=== PATIENT | male | born 1945 | race Caucasian/White ===

== ENCOUNTER → 2023-08-30 12:43 | Outpatient (CLI) | payer MEDICARE, OTHER, SELFPAY ==
--- NOTE | 2023-08-30 13:24 | DI.MRI.S_ITS ---
PROCEDURE: MR KNEE LT WO CON INDICATIONS: LEFT KNEE LATERAL MENISCUS TEAR TECHNIQUE: Noncontrast sagittal PD fast spin echo and T2 fast spin echo with fat saturation, sagittal 3-D FLASH with fat saturation; coronal T1 spin echo and PD fast spin echo with fat saturation, and axial PD fast spin echo with fat saturation through the knee. COMPARISON: [facility] Outside Film, CR, XR KNEE 3 VIEWS LEFT, 03/29/2023, 14:24. FINDINGS: Image quality: Excellent. Menisci: Markedly truncated appearance of body and posterior horn of medial meniscus suggestive of prior partial medial meniscectomy. Subtle signal abnormality within posterior horn remanent of medial meniscus extending to inferior articulating surface concerning for recurrent tear. Peripheral displacement of medial meniscus remanent bowing medial collateral ligament is seen. There is oblique tear involving anterior horn of lateral meniscus extending to superior articulating surface. There is torn posterior medial meniscal root ligament. Cruciate ligaments: The anterior cruciate ligament appears thickened. The posterior cruciate ligament is intact. Medial structures: The medial collateral ligament appears mildly thickened near its femoral insertion with surrounding edema. Visualized portions of the pes anserinus tendons appear normal. No abnormal bursal fluid. Lateral structures: The lateral collateral ligament, long and short heads of the biceps femoris tendon appear intact. The popliteus tendon appears normal. Iliotibial band appears normal. Anterior structures: Distal quadriceps tendinosis and diffuse patellar tendinosis is seen. No tendon rupture. Patellar alignment is normal. Bones and cartilage: Moderate tricompartmental osteoarthritis and chondromalacia is seen most notably in medial femoral tibial compartment. No fracture or dislocation. Joint space: There is moderate knee joint fluid. There is a popliteal cyst measures 2.7 x 2.4 x 5.4 cm in size. Normal appearing synovial plicae are incidentally noted. IMPRESSION: 1. Markedly truncated appearance of medial meniscus suggestive of prior partial medial meniscectomy. Possible re-tear involving posterior medial meniscal root remanent extending to inferior articulating surface. Torn posterior medial meniscal root ligament. 2. Oblique tear involving anterior horn of lateral meniscus extending to superior articulating surface. 3. Myxoid degenerative changes are noted involving anterior cruciate ligament. No ACL rupture. The PCL is intact. 4. Low-grade proximal MCL sprain at its femoral insertion. 5. Distal quadriceps tendinosis and diffuse patellar tendinosis. 6. Moderate tricompartmental osteoarthritis and chondromalacia most notably in medial femoral tibial compartment. No fracture or dislocation. Moderate joint effusion and a popliteal cyst as above. No loose bodies. Dictated by: Gagandeep Ernst M.D. on 08/30/2023 at 15:48 Approved by: Gagandeep Ernst M.D. on 08/30/2023 at 16:00
== END ==
PROVIDERS: Family Provider Family Medicine; PCP Family Medicine; Referring Provider Orthopaedic Surgery; Visit Provider Orthopaedic Surgery
DX: S83.282A Other tear of lateral meniscus, current injury, left knee, initial encounter (principal); S83.412A Sprain of medial collateral ligament of left knee, initial encounter; M17.12 Unilateral primary osteoarthritis, left knee; M94.262 Chondromalacia, left knee; M25.462 Effusion, left knee; M71.22 Synovial cyst of popliteal space [Baker], left knee
CPT/HCPCS: 73721

== ENCOUNTER → 2023-11-29 13:31 | Outpatient (CLI) | payer MEDICARE, OTHER, SELFPAY ==
--- NOTE | 2023-11-29 13:35 | EKG_ITS ---
[place] [id number] [place] [id number] Test Date: 2023-11-29 Pat Name: Joan Hoffman Department: [facility] Room: Gender: Male Leak [employer] Supervisor: LES : 1945 Requested By: Order Number: [id number] Reading MD: Levi Moore Measurements Intervals [place] Rate: 57 P: 57 SD: 154 QRS: -8 QRSD: 102 T: 24 QT: 452 QTc: 439 Interpretive Statements Sinus bradycardia Incomplete right bundle branch block Cannot rule out Inferior infarct , age undetermined Electronically Signed On 12-06-2023 9:03:24 PDT by Levi Moore
[2023-11-29 14:40] LABS: Add Manual Diff / Slide Review NO; Basophils Absolute Auto 100 /uL (0-100); Eosinophils Absolute Auto 300 /uL (0-450); Eosinophils Percent Auto 4.7 % (2-4); Hematocrit 34.9 % (41-53); Lymphocytes Absolute Auto 1200 /uL (1100-4500); Lymphocytes Percent Auto 19.8 % (25-40); Mean Corpuscular HGB Conc 34.4 % (30-36); Mean Corpuscular Hemoglobin 32.9 PG (26-34); Mean Corpuscular Volume 95.7 fL (80-100); Monocytes Absolute Auto 500 /uL (0-900); Monocytes Percent Auto 8.9 % (3-14); Neutrophils Absolute Auto 4000 /uL (1500-7000); Neutrophils Percent Auto 65.6 % (50-75); Platelet Count 238 X10^3/uL (150-400); Red Blood Cell Count 3.65 X10^6/uL (4.5-5.9); Red Cell Distribution Width 13.2 % (11.6-14.8); White Blood Cell Count 6.1 X10^3/uL (4.5-11.0)
[2023-11-29 14:51] LABS: Hemoglobin A1C% w Est Avg Glu 5.2 % (4.0-6.0)
[2023-11-29 15:02] LABS: BUN Creatinine Ratio 23.6 (6-22); Blood Urea Nitrogen 21 mg/dL (9-20); Calcium 9.4 mg/dL (8.4-10.2); Carbon Dioxide 24 mmol/L (22-32); Chloride 106 mmol/L (98-107); Estimated Glomerular Filt Rate > 60 mL/min (>60); Glucose 91 mg/dL (80-110); HEMOLYSIS < 15 (0-50); Potassium 4.9 mmol/L (3.4-5.1); Sodium 138 mmol/L (137-145)
[2023-11-29 15:13] LABS: Appearance Urine UA CLEAR; Bilirubin Urine UA NEGATIVE (NEGATIVE); Color Urine UA YELLOW; Glucose Urine UA NEGATIVE (Negative); Ketones Urine UA NEGATIVE (NEGATIVE); Leukocyte Esterase Urine UA NEGATIVE (NEGATIVE); Nitrite Urine UA NEGATIVE (Negative); Occult Blood Urine UA NEGATIVE (Negative); Protein Urine UA NEGATIVE (Negative); pH Urine UA 5.5 (4.5-8.0)
[2023-11-29 18:00] LABS: Bacteria Urine None Seen; Culture Indicated Urine Cult Not Indicated; RBC Urine 0-1/HPF (0-5/HPF); Squamous Epithelial Cell Urine 0-1 /HPF (0-5/HPF); Urine Volume 10mL (spun); WBC Urine 0-1/HPF (0-5/HPF)
== END ==
PROVIDERS: Family Provider Family Medicine; PCP Family Medicine; Referring Provider Orthopaedic Surgery; Visit Provider Orthopaedic Surgery
DX: Z01.818 Encounter for other preprocedural examination (principal); R73.9 Hyperglycemia, unspecified; Z01.812 Encounter for preprocedural laboratory examination; N39.0 Urinary tract infection, site not specified
CPT/HCPCS: 36415; 80048; 81001; 83036; 85025; 93005

== ENCOUNTER → 2024-01-04 15:06 | Outpatient (CLI) | payer MEDICARE, OTHER, SELFPAY ==
--- NOTE | 2024-01-04 | DI.US.S_ITS ---
PROCEDURE: US RETRO PERITONEAL LIMITED INDICATIONS: KNOWN AAA TECHNIQUE: Real time scanning was performed of the aorta and iliac arteries, with image documentation. COMPARISON: None available FINDINGS: Aorta: Proximal aorta not identified due to overlying bowel gas. Mid-aorta measures 1.8 cm cm. There is a distal aortic aneurysm measuring 4.1 x 6.3 x 5.3 cm (AP by CC by transverse). Iliac arteries: Right common iliac artery measures 1.5 cm. Left common iliac artery not identified due to overlying bowel gas. IMPRESSION: Distal abdominal aortic 6.3 cm aneurysm. Surgical consultation recommended. Dictated by: Mak Onofre M.D. on 01/04/2024 at 17:16 Approved by: Mak Onofre M.D. on 01/04/2024 at 17:18
== END ==
PROVIDERS: Family Provider Family Medicine; PCP Family Medicine; Referring Provider Family Medicine; Visit Provider Family Medicine
DX: I71.43 Infrarenal abdominal aortic aneurysm, without rupture (principal)
CPT/HCPCS: 76775

== ENCOUNTER → 2024-03-28 09:46 | Outpatient (CLI) | payer MEDICARE, OTHER, SELFPAY ==
--- NOTE | 2024-03-28 | DI.NM.S_ITS ---
PROCEDURE: NM BRINA PERF SPECT R&S PHARM Rest and pharmacological stress myocardial perfusion SPECT with gated imaging and ejection fraction RADIOPHARMACEUTICAL: 12.2 mCi Tc-99m tetrafosmin IV at rest and 24.9 mCi Tc-99m tetrafosmin IV at peak effect of pharmacological stress. 3-cfm-vbkxccve was performed. INDICATIONS: Peripheral vascular disease, unspecified PQRS ATTESTATIONS: Measure 322 - Is this imaging test primarily performed on a low-risk surgery patient for preoperative evaluation within 30 days preceding their low-risk non-cardiac surgery? Low-risk surgery is defined as cardiac or myocardial infarction less than 1%, including (but not limited to) endoscopic procedures, superficial procedures, cataract surgery, and excisional breast surgery: Answer: No Measure 323 - Is this imaging test performed primarily for the monitoring of an asymptomatic patient who had percutaneous coronary intervention on the visit date or within 2 years of the visit date? Answer: No Measure 324 - Is this imaging test performed primarily for the initial detection and risk assessment on an asymptomatic, low coronary heart disease patient? Low CHD risk definition = clinicians should consider the maximum number of available patient factors used to estimate risk based on Center (ATP III criteria), typically age, gender, diabetes, smoking status, and use of blood pressure medication, and integrate age appropriate estimates for missing elements, such as LDL or standard blood pressure. Answer: No TECHNIQUE: Radiopharmaceutical was injected at peak stress test, and also at rest. SPECT images were obtained. SPECT myocardial perfusion images were displayed in short axis, horizontal long axis, and vertical long axis views. Gated images were reviewed using [employer] software. COMPARISON: None. CARDIAC STRESS: A pharmacologic stress test was performed under the supervision of an attending staff, using an infusion of Lexiscan 0.4 mg. Hemodynamic data: There is normal blood pressure and heart rate response to pharmacologic stress. Symptoms: The patient denied anginal chest pain. Aminophylline: No EKG: No diagnostic changes of ischemia; no ectopy. FINDINGS: Raw data: There is good myocardial uptake of radiotracer. No significant motion artifacts. Rlen-sh-fcgki ratio is 0.26 (normal is less than 0.38 for tetrafosmin tracer). Left ventricle function: Gated images demonstrate normal left ventricular wall thickening. No segmental wall motion abnormalities. No transient ischemic dilation; TID is 1.24 (normal less than 1.3). Left ventricle resting end diastolic volume is 156 mL. Left ventricle stress ejection fraction is 55%; normal range is above 45%. Myocardial perfusion: Rest images had a moderate area of mild to moderate hypoperfusion in the basal to mid inferolateral segment. There is moderate worsening of this perfusion defect noted in the stress and prone images. No other perfusion defects were identified. Summed difference score is 7. IMPRESSION: 1. Abnormal Lexiscan myocardial perfusion scan due to a nontransmural basal to mid inferolateral infarction with moderate kalyani-infarct ischemia. 2. This is a moderate risk stress test given the amount of ischemia present. Dictated by: Bryant Ernst M.D. on 03/28/2024 at 16:58 Approved by: Bryant Ernst M.D. on 03/28/2024 at 17:02
== END ==
LOC: NUCM 09:47
PROVIDERS: Family Provider Family Medicine; PCP Family Medicine; Referring Provider Internal Medicine Cardiovascular Disease; Visit Provider Internal Medicine Cardiovascular Disease
DX: I73.9 Peripheral vascular disease, unspecified (principal); I25.10 Atherosclerotic heart disease of native coronary artery without angina pectoris; R94.39 Abnormal result of other cardiovascular function study
CPT/HCPCS: 78452; 93017; A9502; J2785

== ENCOUNTER → 2024-07-17 12:34 | Outpatient (CLI) | payer MEDICARE, OTHER, SELFPAY ==
[2024-07-17 13:01] LABS: Appearance Urine UA CLEAR; Bilirubin Urine UA NEGATIVE (NEGATIVE); Color Urine UA YELLOW; Glucose Urine UA NEGATIVE (Negative); Ketones Urine UA NEGATIVE (NEGATIVE); Leukocyte Esterase Urine UA NEGATIVE (NEGATIVE); Nitrite Urine UA NEGATIVE (Negative); Occult Blood Urine UA NEGATIVE (Negative); Protein Urine UA NEGATIVE (Negative); Specific Gravity Urine UA 1.015 (1.000-1.035); Urobilinogen Urine UA 0.2 E.U./dL (0.2); pH Urine UA 5.5 (4.5-8.0)
[2024-07-17 13:13] LABS: Bacteria Urine None Seen; RBC Urine None Seen (0-5/HPF); Urine Volume 10mL (spun); WBC Urine None Seen (0-5/HPF)
[2024-07-17 13:14] LABS: Culture Indicated Urine Cult Not Indicated; Squamous Epithelial Cell Urine None Seen (0-5/HPF)
[2024-07-17 13:18] LABS: Add Manual Diff / Slide Review NO; Basophils Absolute Auto 100 /uL (0-100); Eosinophils Absolute Auto 200 /uL (0-450); Eosinophils Percent Auto 3.5 % (2-4); Hematocrit 37.7 % (41-53); Hemoglobin 13.1 g/dL (13.5-17.5); Lymphocytes Absolute Auto 1300 /uL (1100-4500); Lymphocytes Percent Auto 18.9 % (25-40); Mean Corpuscular HGB Conc 34.8 % (30-36); Mean Corpuscular Volume 94.7 fL (80-100); Monocytes Absolute Auto 600 /uL (0-900); Monocytes Percent Auto 8.5 % (3-14); Neutrophils Absolute Auto 4600 /uL (1500-7000); Neutrophils Percent Auto 68.1 % (50-75); Platelet Count 242 X10^3/uL (150-400); Red Blood Cell Count 3.98 X10^6/uL (4.5-5.9); Red Cell Distribution Width 12.8 % (11.6-14.8); White Blood Cell Count 6.8 X10^3/uL (4.5-11.0)
[2024-07-17 13:25] LABS: Hemoglobin A1C% w Est Avg Glu 5.1 % (4.0-6.0)
[2024-07-17 13:45] LABS: BUN Creatinine Ratio 25.9 (6-22); Blood Urea Nitrogen 21 mg/dL (9-20); Calcium 10.1 mg/dL (8.4-10.2); Carbon Dioxide 26 mmol/L (22-32); Chloride 102 mmol/L (98-107); Estimated Glomerular Filt Rate > 60 mL/min (>60); Glucose 98 mg/dL (80-110); HEMOLYSIS < 15 (0-50); Potassium 5.1 mmol/L (3.4-5.1); Sodium 137 mmol/L (137-145)
== END ==
PROVIDERS: Family Provider Family Medicine; PCP Family Medicine; Referring Provider Orthopaedic Surgery; Visit Provider Orthopaedic Surgery
DX: Z01.812 Encounter for preprocedural laboratory examination (principal); R73.9 Hyperglycemia, unspecified; N39.0 Urinary tract infection, site not specified
CPT/HCPCS: 36415; 80048; 81001; 83036; 85025

== ENCOUNTER 2024-09-19 06:14 | Day surgery (SDC) | payer MEDICARE, OTHER, SELFPAY ==
[2024-07-26 08:16] VITALS: BMI 31.4
[2024-07-27 11:12] VITALS: BMI 31.4
[2024-09-19] VITALS (10 sets, daily range): BP systolic 108–152; BP diastolic 58–88; PULSE 59–66; RESP 10–17; TEMP 36.2–36.9; O2SAT 91–98; BMI 31.4
--- NOTE | 2024-09-19 06:00 | DI.RAD.S_ITS ---
PROCEDURE: XR KNEE LT 1TO2V INDICATIONS: TKA TECHNIQUE: 2 view(s) of the knee acquired. COMPARISON: None. FINDINGS: Bones: Patient is status post knee joint arthroplasty. Hardware components are in expected positions. Visualized bony structures are intact. Soft tissues: Overlying postoperative changes are noted. Vascular calcifications are present. IMPRESSION: Expected post-operative appearance of a knee arthroplasty. Approved by: Darlene Barlow M.D.,Ph.D. on 09/20/2024 at 12:10
[2024-09-19] MEDS: ACETAMINOPHEN 325 MG TABLET 975 MG PO (07:17)
[2024-09-19] MEDS: CELECOXIB 200 MG CAPSULE 400 MG PO (07:17)
[2024-09-19] MEDS: GABAPENTIN 300 MG CAPSULE PO (07:17)
[2024-09-19] MEDS: VANCOMYCIN 1,000 MG/200 ML PIGGYBACK 200 MG IV (07:18)
[2024-09-19] MEDS: LACTATED RINGERS 1,000 ML 42 ML IV ×3 (07:21→09:58)
--- NOTE | 2024-09-19 07:30 | PM.HP.1 ---
History of Present Illness History of Present Illness Date Patient Seen: 09/19/24 Time Patient Seen: 07:30 Chief complaint: Left TKA Robot Narrative: He continues to note incapacitating left knee pain. He has undergone cardiac and vascular workup. He has been cleared for surgery. He notes his left knee pain significantly interferes with his activities and his ability to walk. 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 07/27/24 07/27/24 History Allergies Allergy/AdvReac Type Severity Reaction Status Date / Time Mdaofot-WDJ-RfM Reductase Allergy Muscle Verified 07/26/24 08:30 Inhibitor pain. cholestral Allergy Mild muscle Uncoded 07/21/17 12:36 aches Exam Vital Signs (past 8 hours): - 09/19/24 06:45 Temperature 97.1 F L Pulse Rate 61 Respiratory Rate 16 Blood Pressure 152/77 H Pulse Oximetry 98 Oxygen Delivery Method Room Air Oxygen Delivery Method Room Air Narrative Exam Narrative: HEENT is benign, lungs are clear, cor regular rate and rhythm, abdomen soft and benign, left lower extremity healed incision for prior vein harvesting, crepitation with range of motion, acceptable tracking of the patella, range motion 0-120, positive flick, Earle test, Objective Labs Labs: X-rays show severe left knee OA Assessment & Plan Assessment and plan (1) Osteoarthritis of left knee: Qualifiers: Osteoarthritis type: primary Qualified Code(s): M17.12 - Unilateral primary osteoarthritis, left knee Status: Acute Assessment & Plan narrative: Has severe left knee osteoarthritis. He has had extensive cardiac workup preoperatively. This also been seen by vascular. He has been cleared for surgery. Recommended a left total knee arthroplasty. The procedure options risks benefits and complications were discussed in detail. He understands the limits of the procedure options risks benefits and complications. Time-Based Coding :: [TOTAL MINUTES] spent with patient and on the chart (including review of chart, obtaining history, exam, reviewing outside data, placing orders, documenting exam and treatment plan, and counseling patient) on [DATE].
--- NOTE | 2024-09-19 07:37 | P.OP_ITS ---
Operative Date/Time/Diagnoses Date of procedure: 09/19/24 Time of procedure: 08:00 Pre-op diagnosis: Left knee OA Post-op diagnosis: same Procedure & Clinicians Procedure: Left total knee arthroplasty Same procedure as scheduled: Yes Indications: The patient has had progressively worsening left knee pain with radiographic changes consistent with arthritis. Non-operative management has failed and the patient has requested total knee replacement. The risks, benefits and alternatives to surgery were discussed with the patient prior to proceeding. Risks discussed included, but were not limited to, failure to relieve pain, stiffness, infection, nerve damage, deep venous thrombosis, pulmonary embolism, stroke, coma, heart attack, permanent paralysis and , as well as the potential need for eventual revision of the prosthetic. Surgeon: Sagrario Bey Key Operator: Yao Greenberg Anesthesia Type: Spinal and Peripheral nerve block Operative Notes Findings: Severe left knee OA Closure Type: primary Specimen(s): none sent Prosthetic devices, grafts, tissues, transplants, or devices: Bey and nephew jonathan BCS2 femur size 8, tibia size 6, 9 mm poly, 35 oval patella Applied: none Estimated Blood Loss (mL): 250 Blood products transfused: none Tourniquet time (min): 34 Procedure in detail: The patient was seen in the pre-operative area, where the patient identified the left knee as the operative site and this was marked with my initials. The patient received pre-operative antibiotics, and was taken to the operating room and placed on the operative table in the supine position. After satisfactory anesthesia, a horse race timer out was performed. The left leg was encircled with a tourniquet about the proximal thigh, and the leg was prepared from the toes to the tourniquet with ChloroPrep in the usual fashion and draped through sterile drapes. The leg was elevated and exsanguinated with Eschmark bandage and the tourniquet inflated to [250] mmHg pressure, the tourniquet was only elevated during cementing. The rest of the procedure was done without a tourniquet.. A PA was used during the procedure and was essential for intraoperative re traction and safe implantation of the components. The knee was approached through an approximately 18 cm incision centered over the patella and carried into the knee through a left knee medial parapatellar arthrotomy. Portion of the medial and lateral meniscus was resected. Soft tissue was carefully mobilized around the patella the patella was measured with a caliper. Bone was resected from the patella and the patellar height was reconstituted with up an appropriate sized patellar component. A cover was then placed on the patella. A small amount of additional medial and lateral meniscus was resected. Pins were placed for Zeb assisted robotic navigation. Plan was carefully taken and developed to optimize range of motion and stability. Two pins were placed in the femur and the adjustable guide was pinned to the tibia. The [employer] robotic bur was used for the distal femoral resection. It looked like an appropriate distal femoral cut and the cut was made without difficulty. The rotation was assessed and the appropriate size femoral guide was placed on the distal femur and finishing cuts were made. There was no evidence of notching. The anterior, posterior and chamfer cuts were then made. The posterior osteophytes and soft tissues were then removed. The posterior capsule was injected with part of a mixture of 60 ml 0.25% Marcaine mixed with 20 ml Exparel for post operative pain control. The remainder of this mixture was injected into the capsule and subcutaneous tissues during cement curing. The tibial guide was meticulously navigated. The rotation was assessed. The pat ient was placed in extension residual medial and lateral meniscus as well as any residual bone was carefully resected. [No] additional tibia was resected. Hemostasis was achieved especially posteriorly. Additional local was injected into the posterior capsule. The extension gap was assessed. The femoral component trial was placed and the notch was finished. Trial tibial and femoral components were then placed and the knee placed through a range of motion. Range of motion was [0-130], with good stability throughout the range. The trials were then removed, and the tibia was finished. The bone was prepared with pulsatile lavage, and dried with a sponge. Cement was applied and the final prosthetics placed. Excess cement was removed during and after cement curing. A brief Betadine soak was performed. After confirming there was no extruded cement posteriorly, the final tibial insert was placed. The knee was copiously irrigated and the tourniquet deflated. Hemostasis was obtained with the [werewolf system]. The capsule was closed with interrupted Vicryl suture. The subcutaneous layer was closed with barbed sutures, and the skin with a running 3-0 V-Lock suture and Surgical glue. An Aquacel Ag dressing was applied and the patient was taken to recovery having tolerated the procedure well. Complications: none Post-operative Condition: stable Disposition: Acute Care Plan for aftercare: The patient will be maintained on a standard total knee replacement protocol with weight bearing as tolerated. The patient will receive aspirin and sequential compression devices for DVT prophylaxis. The patient will be discharged home when safe for the home environment.
[2024-09-19] MEDS: CEFAZOLIN 2 GM/100 ML PREMIX 100 ML IV ×2 (08:11→16:29)
--- NOTE | 2024-09-19 08:17 | SUR.OPER ---
Supine on padded OR bed. Pillow under head, arms secured on padded armboards <90 degree abduction. Safety belt across torso. Non-operative leg secured with tape over blanket over lower leg. Operative leg secured in DeMayo positioner. Foam padded brace at thigh of operative leg.
[2024-09-19] MEDS: TRANEXAMIC ACID 1,000 MG in SODIUM CHLORIDE 0.9% 100 ML 200 MG IV ×2 (08:31→10:14)
[2024-09-19] MEDS: BUPIVACAINE LIPOSOME 266 MG/20 ML VIAL INJ (08:32)
[2024-09-19] MEDS: BUPIVACAINE 0.25% W/ EPI 30 ML VIAL 60 ML INJ (08:32)
[2024-09-19] MEDS: OXYCODONE IR 5 MG TABLET PO ×2 (12:45→16:30)
[2024-09-19] MEDS: ACETAMINOPHEN 325 MG TABLET 650 MG PO (12:45)
[2024-09-19] MEDS: LACTATED RINGERS 1,000 ML 100 ML IV (12:45)
--- NOTE | 2024-09-19 14:25 | PT.IIE ---
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) S/P bilateral inguinal hernia repair S/P left knee arthroscopy Status post Mohs surgery Medical History (Last Reviewed 09/19/24 @ 07:33 by Sagrario Bey MD) AAA (abdominal aortic aneurysm) (01/04/24) Biceps tendinitis CAD (coronary artery disease) Carotid artery disease Dyslipidemia Elevated PSA Erectile dysfunction Gastroenteritis Gouty arthropathy HTN (hypertension) Myocardial infarct (05/2000) Retinal arterial branch occlusion Skin cancer SOB (shortness of breath) Tubular adenoma of colon Physical Therapy Inpatient Evaluation/Re-Eval M1 PT/OT-IP Prior Functional Status Start: 09/19/24 15:43 Freq: NEEDED Status: Active Protocol: Document 09/19/24 15:44 AB (Rec: 09/19/24 15:57 AB [id number]) Medical Review Prior Functional Status Medical History Yes Reviewed Communication able to make needs known Mobility and Gait pt stated that he was independent with all mobilities and ambulation without AD Social History Household Members significant other Living Arrangements House Number of Floors ( One Floor Floors) Number of Stairs To 1 step to enter Enter/Railing? Home Environment High Toilet,Walk in Shower Home Equipment Front Wheel Walker,Quad Cane,Straight Cane,Raised Toilet Seat w/Armrests,Grab Bars Near Toilet M2 PT-IP Current Condition Start: 09/19/24 15:43 Freq: NEEDED Status: Active Protocol: Document 09/19/24 15:44 AB (Rec: 09/19/24 15:57 AB [id number]) Physical Therapy Current Condition Current Condition Evaluation Date 09/19/24 Treatment Diagnosis s/p L TKA; difficulty in walking Onset Date 09/19/24 M3 PT-IP Subjective Start: 09/19/24 15:43 Freq: NEEDED Status: Active Protocol: Document 09/19/24 15:44 AB (Rec: 09/19/24 15:57 AB [id number]) Subjective Physical Therapy Visit Type Type Initial Evaluation Visit Start Time 14:25 Visit Stop Time 15:20 Number of [employer] Visits 0 Physical Therapy Visit Comments Patient Comments agreeable to do PT; wants to go home Therapy Pain Assessment Pain When Pain Assessed At Rest Pain Present Pain Present Pain Reported Location Left Knee Intensity 5 Scale Used Numeric (0 - 10) Pain Behaviors Guarding Pain Management Apply Cold,Distraction,Elevation,Modification of Techniques Treatment,Re-positioning,Timing of Activity with Medications M4 PT-IP Mobility and Gait Start: 09/19/24 15:43 Freq: NEEDED Status: Active Protocol: Document 09/19/24 15:44 AB (Rec: 09/19/24 15:57 AB [id number]) PT-Bed Mobility Assessment Supine to Sit Supine to Sit Standby Assistance Sit to Supine Sit to Supine Standby Assistance PT-Transfer Assessment Sit to and From Stand Sit to and from Contact Guard Assistance,1 Person Assistance,Use of Stand Upper Extremities Equipment Transfer Assistive Gait Belt,Front Wheeled Walker Device Orthotic/Prosthetic No Devices or Brace: Transfers Transfer Destination Bed,Chair Transfer Technique ambulated Transfer Ability Level of Assist Contact Guard Assistance,1 Person Assistance,Use of Upper Extremities Comments Mobility Comments pt sitting on the chair and spouse in room. obtained PLOF and home setup. educated pt on HEP. caregiver training conducted. educated spouse on how to use safety belt. spouse was able to put belt on. pt completed sit to stand from chair CGA and ambulated in room ~ 25 ft using FWW CGA and sat on EOB. completed bed mobility SBA. spouse assisted pt with sit to stand from EOB and ambulated pt out in the hallway to the platform step. educated pt and spouse on stair climbing. pt completed up/down platform step using FWW CGA. pt completed again with spouse assisting. pt ambulated ~ [address] in [address] hallway using FWW with spouse assisting CGA and back to his room. pt sat on the chair. positioned pt on the chair. call light and table placed within reach. pt and spouse without further concerns. ice pack provided. Gait Assessment Gait Gait Assistance Contact Guard Assist Required: Distance (Feet) 35 Able to Maintain Yes Weight Bearing Status During Gait Assistive Devices Assistive Device Gait Belt,Front Wheeled Walker Orthotic/Prosthetic No Devices or Brace: Gait Deviations General Gait Pattern Antalgic Factors Limiting Gait Function Factors Limiting Decreased Activity Tolerance,Decreased Strength,Limited Gait Function Range of Motion,Pain,Poor Balance,Poor Safety Awareness Stair Climbing Assessment Evaluation Level of Assist On Contact Guard Assistance,1 Person Assistance Stairs Devices Stair Climbing Front Wheel Walker Assistive Devices Technique/Endurance Stair Climbing Ascend and Descend Direction Number of Steps 1 Climbed Query Text: Stair Climbing Set # 2 Repetitions (reps) PT-Balance Assessment Sitting Balance and Reactions Static Sitting Normal Balance Ability Dynamic Sitting Good Balance Ability Standing Balance and Reactions Static Standing Good Balance Ability Dynamic Standing Fair Balance Ability Device Used FWW M5 PT-IP Objective Assessments Start: 09/19/24 15:43 Freq: NEEDED Status: Active Protocol: Document 09/19/24 15:44 AB (Rec: 09/19/24 15:57 AB [id number]) Orientation Orientation/Cognition Level of Alertness Alert Orientation Name,Place,Situation Language Function No Deficits Noted Ability Safety Awareness Understands Safety Issues Memory Description No Deficits Noted Gross Range of Motion Lower Extremity ROM Assessment Left Impaired Impairments L knee flexion: ~ 70 deg Strength Lower Extremity Strength Assessment Left Impaired Knee 4-/5 Sensation Assessment Sensation Gross Sensation WNL Muscle Tone Muscle Tone WNL Yes M6 PT-IP Treatment Start: 09/19/24 15:43 Freq: NEEDED Status: Active Protocol: Document 09/19/24 15:44 AB (Rec: 09/19/24 15:57 AB [id number]) Physical Therapy Treatment Exercises Exercises Heel Slides Education Education Provided Precautions,Weight Bearing Status,Post-Op Packet,Safety M7 PT-IP Assessment and Plan Start: 09/19/24 15:43 Freq: NEEDED Status: Active Protocol: Document 09/19/24 15:44 AB (Rec: 09/19/24 15:57 [id number]) PT Summary Assessment and Plan Potential Rehabilitation Fair Potential Status of Condition Stable at Evaluation Summary Impairments Pain,ROM,Strength,Balance,Coordination,Sensation,Tone, Cognition,Bed Mobility,Transfers,Gait,Activity Tolerance Assessment Summary pt is a 78 y/o M s/p L TKA POD0. pt is WBAT on LLE. pt requiring SBA with bed mobility, CGA with transfers and ambulation using fWW and able to complete stair climbing CGA using FWW. caregiver training conducted and spouse was able to assist pt safely. pt plans to go home and has outpt PT set up. Goals Bed Mobility Goal Independent Transfer Goal Independent,Front Wheeled Walker Gait Goal Independent,Front Wheel Walker Gait Distance 250 Other Goals up/down 1 platform step using FWW mod I Days to Meet Goals 3 Frequency of Treatment Frequency Of Twice a Day Treatment Treatment Plan Physical Therapy Bed Mobility Training,Transfer Training,Gait Training, Treatment Plan Therapeutic Exercise,Balance Retraining,Post Op Education,Discharge Planning,Hot or Cold Pack, Neuromuscular Re-ed,Coordination Retraining,Manual Therapy Weight Bearing Status Weight Bearing Weight Bear as Tolerated Status Allowed Weight LLE WBAT Bearing Amount ( enter % or #) (%) Recommendations To Nursing Amount of Assist 1 Person Assist Needed Discharge Recommendations PT Discharge Home with Assistance,Outpatient PT Recommendations Transportation Needs Private Vehicle at Discharge - PT assist 1
--- NOTE | 2024-09-19 15:10 | OT.IP.EVAL ---
Current Diagnoses Unilateral primary osteoarthritis, left knee (09/19/24) Surgery Performed Operation Date: 09/19/24 07:45 Actual Procedures p Total Knee Arthroplasty - Robot(Left) - Sagrario Bey MD Past Medical History (Last Reviewed 09/19/24 @ 07:33 by Sagrario Bey MD) AAA (abdominal aortic aneurysm) (01/04/24) Biceps tendinitis CAD (coronary artery disease) Carotid artery disease Dyslipidemia Elevated PSA Erectile dysfunction Gastroenteritis Gouty arthropathy HTN (hypertension) Myocardial infarct (05/2000) Retinal arterial branch occlusion Skin cancer SOB (shortness of breath) Tubular adenoma of colon Surgical History (Last Reviewed 09/19/24 @ 07:33 by Sagrario Bey MD) Hx 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 Activities of Daily Completely independent but had pain. Living and IADL's Prior Functional Pt has a supportive life partner to assist with his Level (Other details needs- especially needed to remind him of safety awareness. ) Social History Household Members significant other Living Arrangements House Number of Floors ( One Floor Floors) Number of Stairs To One step in the front. Enter/Railing? Home Environment High Toilet,Walk in Shower Home Equipment Front Wheel Walker,Straight Cane,Grab Bars Near Toilet M2 OT-IP Current Condition Start: 09/19/24 14:59 Freq: Status: Active Protocol: Document 09/19/24 14:59 [facility] (Rec: 09/19/24 15:09 [facility] Desktop) Occupational Therapy Current Condition Current Condition Evaluation Date 09/19/24 Treatment Diagnosis S/P L TKA Diagnosis Onset Date 09/19/24 Weight Bearing Status Weight Bearing Weight Bear as Tolerated Status M3 OT- IP Subjective and Pain Start: 09/19/24 14:59 Freq: Status: Active Protocol: Document 09/19/24 14:59 [facility] (Rec: 09/19/24 15:09 [facility] Desktop) OT- Subjective Occupational Therapy Visit Type Type Initial Evaluation Visit Start Time 12:50 Visit Stop Time 14:22 Occupational Therapy Visit Comments Patient Comments Pt seen from [id number], [id number] Patient/Caregiver To go home. Goals OT Pain Assessment Pain When Pain Assessed During Mobility Pain Present Pain Present Pain Reported Location Rt knee Intensity 5 Scale Used Numeric (0 - 10) M4 OT- IP ADL's Start: 09/19/24 14:59 Freq: Status: Active Protocol: Document 09/19/24 14:59 [facility] (Rec: 09/19/24 15:09 [facility] Desktop) OT RQX-Parv-Xrnbrdl General Evaluation Self-Feeding Ability Independent OT ADL-Grooming Comments OT Grooming Comments not performed OT ADL-Oral Care Comments Oral Care Comments not performed OT ADL-Dressing General Eval Lower Body Dressing Moderate Assistance,Maximum Assistance Ability Comments OT Dressing Comments Assist with socks and shoes. VC to dress the LLE first and take out last. In addition to be mindful not to twist his knee. Showed pt LB dressing equipment but not interested and that his SO to assist as needed. OT ADL-Toileting General Evaluation Toileting Ability Standby Assistance Comments OT Toileting Educated to have the FWW over the toilet as pt stands Comments to urinate. Also mentioned to be mindful of his knee positioning while wiping. Suggested to take the urinal home. OT ADL-Bathing Comments OT Bathing Comments Pt may benefit from shower chair, or at least his SO present with FWW in the shower. Spoke on care for bandage while showering. M5 OT- IP IADL's Start: 09/19/24 14:59 Freq: Status: Active Protocol: Document 09/19/24 14:59 [facility] (Rec: 09/19/24 15:09 [facility] Desktop) OT-Instrumental Activities of Daily Living Deficits IADL Deficits No Deficits Identified Home Safety Awareness Awareness of Need Decreased Awareness for Assistance at Home Ability to Problem Able to Problem Solve Solve Emergency Situations Meal Preparation Meal Preparation Caregiver Provides Assist Avionics System Engineer Avionics System Engineer Caregiver Provides Assist M6 OT- IP Functional Cognition Start: 09/19/24 14:59 Freq: Status: Active Protocol: Document 09/19/24 14:59 [facility] (Rec: 09/19/24 15:09 [facility] Desktop) Cognitive Factors Limiting Selfcare Function Cognitive Ability Level of Alertness Alert Patient Orientation Name,Age,Birthday,Month,Date,Year,Day of Week,Place, Situation Attention Span Capable of Focused Attention,Capable of Sustained Ability Attention Ability to Follow Able to Follow One Step Commands Commands Safety Awareness Underestimates Need for Assistance Cognitive Comments Cognitive Assessment Pt needing vc for safety awareness to keep the FWW in Comments front of him as pt trying to walk without the FWW. Pt is a bit impulsive. VC to push up from surfaces when coming to stand. OT- Vision and Hearing OT- Hearing Assessment OT- Hearing WFL Assessment OT- Vision Assessment Visual Acuity Glasses For Reading Visual Attentiveness WFL Occular Pursuits WFL M7 OT- IP Mobility and Balance Start: 09/19/24 14:59 Freq: Status: Active Protocol: Document 09/19/24 14:59 [facility] (Rec: 09/19/24 15:09 [facility] Desktop) OT- Bed Mobility Assessment Supine to Sit Supine to Sit Assist Independent Sit to Supine Sit to Supine Assist Independent Scooting Scooting to Edge of Independent Bed OT-Transfer Assessment Sit to and From Stand Sit to and from Standby Assistance Stand Transfers Transfer Ability Standby Assistance Technique Transfer Destination Bed,Chair,Toilet Transfer Technique Stand Step Pivot Devices Transfer Assistive Gait Belt,Front Wheeled Walker Devices Comments Mobility Comments Pt able to get out on the right side of the bed as he does at home without any difficulty. SBA for mobility needs and vc to slow down. Pt trying to garbage pick up man the FWW and vc to be safe use the FWW for now as just having surgery this AM. OT- Balance Assessment Sitting Balance and Reactions Static Sitting Normal Balance Ability Dynamic Sitting Good Balance Ability Standing Balance and Reactions Static Standing Good Balance Ability Dynamic Standing Fair Balance Ability M8 OT- IP Objective Assessments Start: 09/19/24 14:59 Freq: Status: Active Protocol: Document 09/19/24 14:59 [facility] (Rec: 09/19/24 15:09 [facility] Desktop) OT Gross Range of Motion Upper Extremity Range of Motion Assessment Within Functional Limits OT Strength Upper Extremity Strength Assessment Within Functional Limits
[2024-09-19] MEDS: IBUPROFEN 400 MG TABLET PO (16:30)
--- NOTE | 2024-09-19 17:08 | PC.NURSE ---
Pt arrived from PACU at 1130, VSS on RA. A&Ox4, cece wrap to LLE c/d/i, c/o numbness and tingling to bilat LE, no pain at this time. Lung sounds CTA, bowel sounds present CMS otherwise intact. Pt oriented to room and call light. Bed in low position, call light within reach, SCDs on.
--- NOTE | 2024-09-19 18:40 | PC.NURSE ---
Pt discharged home at 1813, escorted off floor in wheelchair accompanied by spouse and hospital staff. IV removed, tele d/c'd, discharge teaching completed including new medications, wound care and follow up appointments. Patient left the room with all belongings.
== END 2024-09-19 18:20 | disposition home or self-care (01) ==
LOC: OR 06:15 → AC 06:15
PROVIDERS: Family Provider Family Medicine; PCP Family Medicine; Referring Provider Orthopaedic Surgery; Visit Provider Orthopaedic Surgery
PROC: 0SRD0JZ Replacement of Left Knee Joint with Synthetic Substitute, Open Approach (ICD-10-PCS; CPT 27447; principal; 2024-09-19 07:45)
DX: M17.12 Unilateral primary osteoarthritis, left knee (principal); I10 Essential (primary) hypertension; I25.10 Atherosclerotic heart disease of native coronary artery without angina pectoris; I71.40 Abdominal aortic aneurysm, without rupture, unspecified; E78.5 Hyperlipidemia, unspecified; I25.2 Old myocardial infarction; Z95.1 Presence of aortocoronary bypass graft; Z85.828 Personal history of other malignant neoplasm of skin; Z87.891 Personal history of nicotine dependence
CPT/HCPCS: 27447; 73560; 82962; 97161; 97165; 97530; 97535; C1776; C1713; J0666; J0690; J1100; J1885; J2405; J2704; J3010

== ENCOUNTER → 2024-09-29 16:05 | Outpatient (CLI) | payer MEDICARE, OTHER, SELFPAY ==
[2024-09-19 11:58] VITALS: BMI 31.4
--- NOTE | 2024-09-29 16:07 | DI.US.S_ITS ---
PROCEDURE: US PERIPH VENOUS LOW EXTREM LT INDICATIONS: PAIN TECHNIQUE: Real-time imaging, as well as color and pulse Doppler interrogation, were performed of the lower extremity deep veins from the inguinal ligament to the popliteal fossa, with documentation of the visualized calf veins. COMPARISON: None. FINDINGS: The common femoral, femoral, popliteal, and the visualized calf veins are normally compressible, and free of intraluminal thrombus. Color and pulse Doppler demonstrate normal phasic intraluminal flow. There is normal augmentation response to distal compression maneuver. Edema is noted within the overlying soft tissues. IMPRESSION: No findings of lower extremity deep venous thrombosis. Dictated by: Oliva Marcus M.D. on 09/29/2024 at 16:53 Approved by: Oliva Marcus M.D. on 09/29/2024 at 16:53
== END ==
LOC: US 16:06
PROVIDERS: Family Provider Family Medicine; PCP Family Medicine; Referring Provider Orthopaedic Surgery; Visit Provider Orthopaedic Surgery
DX: M79.89 Other specified soft tissue disorders (principal); Z96.652 Presence of left artificial knee joint
CPT/HCPCS: 93971